=== PATIENT | female | born 1960 | race Caucasian/White ===

== ENCOUNTER 2019-03-16 04:51 | Emergency (ER) | payer OTHER ==
[~2019-03-16] VITALS: Ht 172.7 cm; Wt 67.1 kg
[2019-03-16] MEDS ORDERED: PAXIL20 MG PO (05:19)
[2019-03-16] MEDS ORDERED: LEVO-T25 MCG PO (05:19)
[2019-03-16 05:20] LABS: ABSOLUTE NEUTROPHILS 7.2 thou/uL (1.4-8.2); BASOPHILS 0.4 % (0.0-2.0); EOSINOPHILS 1.2 % (0.0-3.0); HEMOGLOBIN 13.3 gm/dL (12.0-15.0); LYMPHOCYTES 7.7 % (24.0-44.0); MCHC 33.2 g/dL (28.0-37.0); MCV 93.5 fL (80.0-100.0); MONOCYTES 6.2 % (1.0-8.0); PLATELET COUNT 212 thou/uL (150-400); POLYS 84.5 % (36.0-66.0); RBC 4.28 mil/uL (4.20-5.00); RDW 12.9 % (10.5-14.5); WBC 8.5 thou/uL (4.0-11.0)
[2019-03-16 05:29] LABS: ANION GAP 9 mmol/L (7-16); BUN 20 mg/dL (7-18); CHLORIDE 107 mmol/L (98-107); CO2 30 mmol/L (21-32); CREATININE 0.8 mg/dL (0.6-1.0); GLUCOSE 119 mg/dL (74-106); POTASSIUM 3.5 mmol/L (3.5-5.1); SODIUM 146 mmol/L (136-145)
[2019-03-16 05:37] LABS: ALBUMIN 3.9 g/dL (3.4-5.0); DIRECT BILIRUBIN < 0.1 mg/dL (<0.1-0.2); LIPASE 107 U/L (73-393); SGOT 20 U/L (15-37); SGPT 29 U/L (30-65); TOTAL BILIRUBIN 0.3 mg/dL (<0.1-1.0); TOTAL PROTEIN 6.9 g/dL (6.4-8.2); TROPONIN-I <0.06 ng/mL (<0.06)
[2019-03-16] MEDS ORDERED: IMODIUM A-D2 MG PO ×2 (07:21→07:38)
[2019-03-16] MEDS ORDERED: BENTYL 20 MG TA20 M1 PO ×2 (07:21→07:38)
[2019-03-16] MEDS ORDERED: PHENERGAN 25 MG25 M1 PO ×2 (07:21→07:38)
[2019-03-16] MEDS ORDERED: ZOFRAN ODT4 MG PO ×2 (07:21→07:38)
[2019-03-16 07:55] VITALS: BP 99/51
--- NOTE | 2019-03-16 11:26 | EKG ---
[address] [address] ELECTROCARDIOGRAM REPORT Name: JOLLY CRABTREE Room #: DEP [facility]#: [id number] Admission: 03/16/19 Attend Phys: Discharge: 03/16/19 Date of : 58 Report #: [id number] THIS REPORT FOR: //name// [facility] ED Test Date: 2019-03-16 Test Time: 05:28:01 Pat Name: JOLLY CRABTREE Department: Patient ID: [id number]- Room: Gender: F [employer]: avery chavarria rn : 1960 Requested By: Sheyla Carrera Order Number: [id number] MD: Go Mendes Measurements Intervals [place] Rate: 72 P: 83 MT: 154 QRS: 80 QRSD: 105 T: 55 QT: 400 QTc: 438 Interpretive Statements Sinus rhythm No previous ECG available for comparison Electronically Signed On 03-16-2019 11:26:03 [employer]ESS[employer] by Go Mendes [email or web address] <ELECTRONICALLY SIGNED> By: Go Mendes MD 03/16/19 1126 [id number] 0528 Go Mendes MD /[email or web address]
== END 2019-03-16 08:00 | disposition home or self-care (01) ==
LOC: ER 04:51
PROVIDERS: Emergency Medicine
DX: A09 Infectious gastroenteritis and colitis, unspecified (principal); I95.1 Orthostatic hypotension; R11.2 Nausea with vomiting, unspecified; Z91.018 Allergy to other foods; Z88.0 Allergy status to penicillin; Z88.1 Allergy status to other antibiotic agents

== ENCOUNTER → 2020-02-12 | Outpatient (CLI) | payer OTHER ==
[~2020-02-12] MED LIST: BENTYL 20 MG TA20 M1 PO; IMODIUM A-D2 MG PO; LEVO-T25 MCG PO; PAXIL20 MG PO; PHENERGAN 25 MG25 M1 PO; ZOFRAN ODT4 MG PO
== END ==
LOC: LAB 09:24
PROVIDERS: ATTEND Nurse Practitioner
DX: Z20.828 Contact with and (suspected) exposure to other viral communicable diseases (principal)